=== PATIENT | female | born 1945 | race Caucasian/White ===

== ENCOUNTER 2019-07-03 18:31 | Inpatient (IN) | payer OTHER ==
[~2019-07-03] VITALS: Ht 144.8 cm; Wt 59.0 kg
[2019-07-03 19:48] LABS: HEMATOCRIT. 43.3 % (36.0-48.0); HEMOGLOBIN. 14.5 g/dL (12.0-16.0); MEAN CORPUSCULAR HEMOGLOBIN 31.5 pg (28.0-32.0); MEAN CORPUSCULAR VOLUME 94.3 fL (81.0-99.0); MEAN PLATELET VOLUME 8.6 fl (7.4-10.4); PLATELET 250 x1000/uL (130-400); RED BLOOD CELL COUNT 4.59 mill/uL (4.2-5.4); RED CELL DISTRIBUTION WIDTH 13.5 % (11.6-14.6)
[2019-07-03 19:54] LABS: INR 1.1; PROTHROMBIN TIME 11.3 sec (9.6-11.0)
[2019-07-03 19:55] LABS: CHLORIDE 104 mEq/L (98-107)
[2019-07-03 20:23] LABS: PLATELET ESTIMATE NORMAL
[2019-07-03] MEDS ORDERED: AZITHROMYCIN 500 MG in DEXT 5% WATER 250 ML IV STA (22:32)
[2019-07-03] MEDS ORDERED: CEFTRIAXONE 1 G PREMIX 50 ML IV ONE (22:45)
[2019-07-04] VITALS (7 sets, daily range): BP systolic 101–165; BP diastolic 66–96
[2019-07-04] MEDS ORDERED: ACETAMINOPHEN 325MG TABLET PO PRN (03:15)
[2019-07-04] MEDS ORDERED: GUAIFENESIN 200MG/10ML SUGAR FREE UDC PO PRN (03:15)
[2019-07-04] MEDS ORDERED: DOCUSATE SODIUM 100MG CAPSULE PO PRN (03:15)
[2019-07-04] MEDS ORDERED: CLONIDINE 0.1MG TABLET PO PRN (03:15)
[2019-07-04] MEDS ORDERED: SODIUM CHLORIDE 0.45% 1,000 ML IV SCH (04:30)
[2019-07-04] MEDS: ASPIRIN 325MG EC TABLET PO SCH (08:42)
[2019-07-04] MEDS: HYDROCODONE/ACETAMINOPHEN 5/325MG TABLET PO PRN ×2 (08:42→14:56)
[2019-07-04] MEDS: ENOXAPARIN 30MG/0.3ML SYR SUBCUT SCH (08:43)
[2019-07-04] MEDS ORDERED: LEVOFLOXACIN 500MG PREMIX 100 ML IV NR (10:00)
[2019-07-04] MEDS: ONDANSETRON HCL 4MG/2ML INJ IV PRN (14:56)
[2019-07-04] MEDS ORDERED: NAPR-679 MT (18:09)
[2019-07-04] MEDS ORDERED: TRAZ-213 MT (18:09)
[2019-07-04] MEDS ORDERED: CALC-3 MT (18:09)
[2019-07-04] MEDS ORDERED: ATEN-42 MT (18:22)
[2019-07-04] MEDS ORDERED: METF500T60 MT (18:22)
[2019-07-04] MEDS ORDERED: BENA40TA9 MT (18:22)
[2019-07-04 21:28] LABS: CREATINE KINASE 64 IU/L (26-192)
[2019-07-05 04:00] VITALS: BP 119/77
[2019-07-05 07:07] LABS: BASOPHILS % 0.2 % (0.0-2.0); HEMATOCRIT. 37.1 % (36.0-48.0); HEMOGLOBIN. 12.6 g/dL (12.0-16.0); LYMPHOCYTES % 24.4 % (20.0-50.0); MEAN CORPUSCULAR HEMOGLOBIN 31.8 pg (28.0-32.0); MEAN PLATELET VOLUME 8.9 fl (7.4-10.4); MONOCYTES % 11.3 % (2.0-8.0); NEUTROPHILS % 63.1 % (40.0-76.0); PLATELET 202 x1000/uL (130-400); RED BLOOD CELL COUNT 3.95 mill/uL (4.2-5.4); RED CELL DISTRIBUTION WIDTH 13.4 % (11.6-14.6)
[2019-07-05 08:00] VITALS: BP 156/86
[2019-07-05 08:14] LABS: CHLORIDE 102 mEq/L (98-107)
[2019-07-05 08:21] LABS: LDL CHOLESTEROL 103 mg/dL (5-100)
[2019-07-05 08:21] LABS: CLARITY URINE CLEAR (CLEAR); COLOR URINE YELLOW (YELLOW); KETONES URINE 1+ (NEGATIVE); LEUKOCYTE ESTERASE URINE NEGATIVE (NEGATIVE); NITRITE URINE NEGATIVE (NEGATIVE); OCCULT BLOOD URINE 1+ (NEGATIVE); PH URINE 5.5 (4.5-8.0); PROTEIN URINE TRACE (NEGATIVE); SPECIFIC GRAVITY URINE 1.022 (1.005-1.030); UROBILINOGEN URINE 0.2 E.U./dL (0.2-1.0)
[2019-07-05 08:22] LABS: HDL CHOLESTEROL 50 mg/dL (40-59)
[2019-07-05] MEDS: ENOXAPARIN 30MG/0.3ML SYR SUBCUT SCH (09:00)
[2019-07-05] MEDS ORDERED: LOPERAMIDE HCL 2MG CAPSULE PO SCH (09:00)
[2019-07-05] MEDS: ASPIRIN 325MG EC TABLET PO SCH (09:00)
[2019-07-05] MEDS ORDERED: LEVOFLOXACIN 250MG PREMIX 50 ML IV SCH (10:00)
[2019-07-05 12:00] VITALS: BP 126/88
[2019-07-05 16:00] VITALS: BP_SYST 111; BP_SYST 132; BP_DIAS 77; BP_DIAS 78; BP_DIAS 90
[2019-07-05] MEDS: HYDROCODONE/ACETAMINOPHEN 5/325MG TABLET PO PRN (16:12)
[2019-07-05 20:00] VITALS: BP 143/83
[2019-07-05] MEDS: ONDANSETRON HCL 4MG/2ML INJ IV PRN (21:11)
[2019-07-06] VITALS: BP 144/96
[2019-07-06 04:00] VITALS: BP 125/87
[2019-07-06 08:00] VITALS: BP 132/87
[2019-07-06] MEDS: ENOXAPARIN 30MG/0.3ML SYR SUBCUT SCH (09:15)
[2019-07-06] MEDS: ASPIRIN 325MG EC TABLET PO SCH (09:15)
[2019-07-06 10:02] VITALS: BP 132/87
== END 2019-07-06 12:15 | disposition home or self-care (01) | DRG 312 ==
LOC: ER 18:31 → EDBD 18:31 → 8WST 23:42 → EDBEDREQ 23:45 → EDBEDREQTM 23:45 → ENRESERV 07-04 01:40
PROVIDERS: ADMIT Hospitalist; ATTEND Hospitalist
DX: R55 Syncope and collapse (principal); N39.0 Urinary tract infection, site not specified; R65.10 Systemic inflammatory response syndrome (SIRS) of non-infectious origin without acute organ dysfunction; I11.0 Hypertensive heart disease with heart failure; I50.9 Heart failure, unspecified; D72.829 Elevated white blood cell count, unspecified; R19.7 Diarrhea, unspecified; E78.5 Hyperlipidemia, unspecified; R51 Headache
CPT/HCPCS: 36415; 71045; 80061; 81003; 82270; 82550; 83880; 84484; 87493; 93005; 93306; 93970; 97162; 99285; J0456; J0696; J1650; J1956; J2405; J7060

== ENCOUNTER 2021-11-10 11:06 | Emergency (ER) | payer MEDICARE, MEDICAID ==
[~2021-11-10] VITALS: Ht 121.9 cm; Wt 55.0 kg
[~2021-11-10 11:06] MED LIST: ATEN-42 MT; BENA40TA9 MT; METF500T60 MT
[2021-11-10 12:22] LABS: BASOPHILS % 0.2 % (0.0-2.0); EOSINOPHILS % 2.2 % (0.0-5.0); HEMATOCRIT. 41.4 % (36.0-48.0); HEMOGLOBIN. 14.1 g/dL (12.0-16.0); LYMPHOCYTES % 33.5 % (20.0-50.0); MEAN CORPUSCULAR HEMOGLOBIN 32.2 pg (28.0-32.0); MEAN PLATELET VOLUME 8.3 fl (7.4-10.4); MONOCYTES % 8.4 % (2.0-8.0); NEUTROPHILS % 55.7 % (40.0-76.0); PLATELET 240 x1000/uL (130-400); RED BLOOD CELL COUNT 4.36 mill/uL (4.2-5.4); RED CELL DISTRIBUTION WIDTH 12.9 % (11.6-14.6)
[2021-11-10 12:29] LABS: CHLORIDE 105 mEq/L (98-107)
[2021-11-10 12:31] LABS: PROTHROMBIN TIME 10.9 sec (9.6-11.0)
[2021-11-10 13:13] LABS: CLARITY URINE CLEAR (CLEAR); COLOR URINE YELLOW (YELLOW); KETONES URINE NEGATIVE (NEGATIVE); LEUKOCYTE ESTERASE URINE TRACE (NEGATIVE); NITRITE URINE NEGATIVE (NEGATIVE); OCCULT BLOOD URINE NEGATIVE (NEGATIVE); PH URINE 8.5 (4.5-8.0); PROTEIN URINE NEGATIVE (NEGATIVE); SPECIFIC GRAVITY URINE 1.005 (1.005-1.030); UROBILINOGEN URINE 0.2 E.U./dL (0.2-1.0)
[2021-11-10] MEDS ORDERED: LEVO750T46 PO (13:26)
[2021-11-10 13:42] VITALS: BP 128/76
== END 2021-11-10 14:36 | disposition home or self-care (01) ==
LOC: ER 11:06
DX: R21 Rash and other nonspecific skin eruption (principal); J18.9 Pneumonia, unspecified organism; I10 Essential (primary) hypertension; E11.9 Type 2 diabetes mellitus without complications; Z79.84 Long term (current) use of oral hypoglycemic drugs; Z79.899 Other long term (current) drug therapy
CPT/HCPCS: 36415; 71045; 80053; 81003; 85025; 99284

== ENCOUNTER 2024-12-17 23:22 | Emergency (ER) | payer MEDICARE, MEDICAID ==
[~2024-12-17] VITALS: Ht 162.6 cm; Wt 63.0 kg
[~2024-12-17 23:22] MED LIST changes: +ASPI-1160 PO; -BENA40TA9 MT; +BENA40TA91 MT; +CEFD300C3 MT; +LEVO750T68 PO; +LIP40 PO
[2024-12-17 23:27] VITALS: O2SAT 99
[2024-12-17 23:47] LABS: BASOPHILS % 0.4 % (0.0-2.0); EOSINOPHILS % 4.2 % (0.0-5.0); HEMATOCRIT. 37.6 % (36.0-48.0); HEMOGLOBIN. 12.5 g/dL (12.0-16.0); MEAN CORPUSCULAR HEMOGLOBIN 31.9 pg (28.0-32.0); MEAN CORPUSCULAR HGB CONC 33.2 g/dL (31.0-37.0); MEAN CORPUSCULAR VOLUME 96.3 fL (81.0-99.0); MONOCYTES % 7.9 % (2.0-8.0); NEUTROPHILS % 34.5 % (40.0-76.0); PLATELET 308 x1000/uL (130-400); RED BLOOD CELL COUNT 3.91 mill/uL (4.2-5.4); RED CELL DISTRIBUTION WIDTH 13.2 % (11.6-14.6); WHITE BLOOD COUNT 10.9 x1000/uL (4.5-11.0)
[2024-12-17 23:58] LABS: CHLORIDE 101 mEq/L (98-107); POTASSIUM 3.4 mEq/L (3.5-5.1); SODIUM 135 mEq/L (136-145)
[2024-12-17 23:59] LABS: CARBON DIOXIDE 25 mEq/L (21-32); INR 1.1; PARTIAL THROMBOPLASTIN TIME 41.2 sec (23.4-31.0); PROTHROMBIN TIME 12.1 sec (9.6-11.0)
[2024-12-18 00:04] LABS: CREATININE 0.5 mg/dL (0.6-1.0); GLUCOSE 186 mg/dL (70-105); UREA NITROGEN BLOOD 5 mg/dL (9-23)
[2024-12-18 00:12] LABS: TROPONIN I HIGH SENSITIVITY < 4 ng/L (3.0-34)
[2024-12-18 00:13] LABS: ETHANOL BLOOD < 10 mg/dL (<10)
[2024-12-18] MEDS: POTASSIUM CHLORIDE 20MEQ/PACKET PO NR (02:00)
[2024-12-18 02:56] LABS: CLARITY URINE CLEAR (CLEAR); COLOR URINE YELLOW (YELLOW); GLUCOSE URINE NEGATIVE (NEGATIVE); KETONES URINE NEGATIVE (NEGATIVE); LEUKOCYTE ESTERASE URINE TRACE (NEGATIVE); NITRITE URINE NEGATIVE (NEGATIVE); OCCULT BLOOD URINE NEGATIVE (NEGATIVE); PH URINE 8.5 (4.5-8.0); PROTEIN URINE NEGATIVE (NEGATIVE); SPECIFIC GRAVITY URINE 1.006 (1.005-1.030); UROBILINOGEN URINE 0.2 E.U./dL (0.2-1.0)
[2024-12-18 03:07] LABS: *AMPHETAMINES SCREEN URINE NEGATIVE (NEGATIVE); *BARBITURATES SCREEN URINE NEGATIVE (NEGATIVE); *BENZODIAZEPINES SCREEN URINE NEGATIVE (NEGATIVE); *COCAINE SCREEN URINE NEGATIVE (NEGATIVE); CANNABINOID URINE SCREEN NEGATIVE (NEGATIVE); ECSTASY MDMA SCREEN URINE NEGATIVE (NEGATIVE); METHADONE URINE SCREEN NEGATIVE (NEGATIVE); OPIATES URINE SCREEN NEGATIVE (NEGATIVE); PHENCYCLIDINE URINE SCREEN NEGATIVE (NEGATIVE)
[2024-12-18 03:27] LABS: SQUAMOUS EPITHELIAL CELL URINE FEW /lpf (RARE/1+)
[2024-12-18 03:28] LABS: RBC URINE 0-2 /hpf (0-2); WBC URINE 0-2 /hpf (0-2)
[2024-12-18 03:29] LABS: BACTERIA URINE TRACE
[2024-12-18 03:30] VITALS: BP 135/91; PULSE 72; RESP 11; TEMP 36.4; O2SAT 100
== END 2024-12-18 04:05 | disposition short-term general hospital (02) ==
LOC: ER 23:22
DX: E87.6 Hypokalemia (principal); R53.1 Weakness; R62.7 Adult failure to thrive; I10 Essential (primary) hypertension; Z79.82 Long term (current) use of aspirin; Z79.84 Long term (current) use of oral hypoglycemic drugs; Z79.899 Other long term (current) drug therapy; Z86.73 Personal history of transient ischemic attack (TIA), and cerebral infarction without residual deficits
CPT/HCPCS: 36415; 71045; 80048; 80305; 80320; 81003; 83880; 84484; 85025; 93005; 99285; G0480